=== PATIENT | male | born 1995 | race Caucasian/White ===

== ENCOUNTER → 2017-06-09 | Outpatient (CLI) | payer BC, OTHER ==
--- NOTE | 2017-06-09 17:08 | Diagnostic Imaging Report ---
PROCEDURE: MRI left joint lower extremity without contrast. TECHNIQUE: Multiplanar, multisequence non contrast-enhanced MRI of the left lower extremity was accomplished. INDICATION: Injury. Left knee pain. FINDINGS: There is no suprapatellar effusion. There is a tiny Roque's cyst measuring 2.7 x 0.5 x 1.9 cm in size. The extensor mechanism is intact. The ACL and the PCL are intact. The medial and the lateral menisci appear intact. The MCL and the lateral collateral ligament complex appear intact. The bone marrow signal is within normal limits. The joint cartilage appears preserved. The muscle bulk and signal around the knee is within normal limits. IMPRESSION: Tiny Roque's cyst. Dictated by: Dictated on workstation # [id number]
== END ==
LOC: RAD 15:24
PROVIDERS: ATTEND Orthopaedic Surgery
DX: M71.22 Synovial cyst of popliteal space [Baker], left knee (principal)
CPT/HCPCS: 73721

== ENCOUNTER → 2017-11-10 | Outpatient (CLI) | payer BC ==
[~2017-11-10] VITALS: Ht 185.4 cm; Wt 108.9 kg
[~2017-11-10] MED LIST: LIDOCAINE 1% INJ 50 ML (XYLOCAINE) VIAL IJ ONE; LIDOCAINE 1% INJ 50 ML (XYLOCAINE) VIAL ONE
[2017-11-10 12:26] VITALS: BP 119/74
[2017-11-10 12:53] VITALS: BP 118/68
--- NOTE | 2017-11-10 13:18 | Diagnostic Imaging Report ---
INDICATION: Right elbow pain. 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 TECHNIQUE: The patient was brought to the procedure room and placed on the table in the prone position. The right elbow was positioned in a 90-degree flexion. The lateral right elbow was prepped and draped in usual sterile fashion. A small amount of 1% lidocaine was utilized for local anesthesia. A 22-gauge needle was advanced into the radiocarpal space using fluoroscopy. Approximately 10 cc of gadolinium contrast solution was injected. Needle was withdrawn. Hemostasis was obtained. Total of 1 minute 29 seconds of fluoroscopy was utilized. The patient tolerated the procedure well and was sent to MRI in satisfactory condition. IMPRESSION: Successful right elbow injection of gadolinium contrast solution, using fluoroscopy. Dictated by: Dictated on workstation # [id number]
--- NOTE | 2017-11-10 13:48 | Diagnostic Imaging Report ---
EXAMINATION: Magnetic resonance imaging of the right elbow with intra-articular contrast DATE: November 10, 2017. COMPARISON: Right elbow arthrogram November 10, 2017. HISTORY: 22-year-old male, right elbow pain for 6 months. Evaluation for ulnar collateral ligament pathology. TECHNIQUE: Magnetic Resonance Imaging sequences were performed of the elbow following the intra-articular administration of contrast. FINDINGS: There are limitations of [id number] ratio on the coronal T2 fat saturation sequence. LIGAMENTS: The anterior band of the medial ulnar collateral ligament complex is intact. The posterior band of the medial ulnar collateral ligament complex is visible on axial sequence image 13 and adjacent sequential images and also appears intact. The lateral ulnar collateral ligament, radial collateral ligament, and annular ligament are intact. MUSCLES AND TENDONS: The proximal common flexor and common extensor tendons are intact. The distal biceps muscle and tendon and the attachment site at the radial tubercle are intact. The distal brachialis muscle and tendon and its insertion on the ulna are intact. The distal triceps muscle and tendon and the attachment site at the olecranon are intact. JOINTS: The radiocapitellar and ulnotrochlear joints are normally aligned. Cartilage surfaces are congruent. There is no identified intra-articular body or prominent synovitis. BONE: The bones all have normal configuration. The bone marrow signal is within normal limits. Specifically, negative for fracture, osteomyelitis, osteonecrosis, or marrow replacing process. SOFT TISSUE: The bursae and soft tissues around the elbow are within normal limits. IMPRESSION: 1. Intact medial and lateral ulnar collateral ligament complexes. 2. Intact tendons. 3. Unremarkable appearance of the elbow joint. 4. Unremarkable bone marrow signal. No acute fracture or bone contusion. 5. Unremarkable MRI arthrogram of the right elbow. Dictated by: Dictated on workstation # [id number]
== END ==
LOC: RAD 12:11
PROVIDERS: ATTEND Orthopaedic Surgery
DX: S53.441A Ulnar collateral ligament sprain of right elbow, initial encounter (principal)
CPT/HCPCS: 24220; 73085; 73222